=== PATIENT | male | born 1950 ===

== ENCOUNTER 2016-04-28 13:08 | Inpatient (IN) | payer MEDICARE, OTHER ==
[2016-04-28] MEDS: SODIUM CHLORIDE 0.9% 1000ML 1,000 ML IV SCH ×3 (16:15→17:16)
[2016-04-28 16:18] LABS: HEMATOCRIT 30 % (39-53); MEAN CORPUSCULAR HGB CONC 34.7 gm/dl (32.0-36.0); MEAN CORPUSCULAR VOLUME 85 fL (80-100)
[2016-04-28 16:42] LABS: ALBUMIN 2.6 gm/dl (3.4-5.0); ALT 10 IU/L (14-63); BASOPHILS % (MANUAL) 0 % (0-3); CALCIUM 8.7 mg/dl (8.5-10.1); EOSINOPHILS % (MANUAL) 0 % (0-9); GLOM FILT RATE 24 mL/min (>60); LYMPHOCYTES % (MANUAL) 4 % (10-50); NORMAL RBCS PRESENT; THYROID STIMULATING HORMONE 2.751 uIU/ml (0.358-3.740)
[2016-04-28 17:07] LABS: APPEARANCE,URINE Cloudy; BILIRUBIN,URINE NEGATIVE (NEGATIVE); COLOR,URINE Yellow; GLUCOSE, URINE (UA) 3+ (NEGATIVE); KETONES,URINE TRACE (NEGATIVE); LEUKOCYTE ESTERASE ,URINE 1+ (NEGATIVE); NITRATE,URINE NEGATIVE (NEGATIVE); OCCULT BLOOD,URINE 3+ (NEG-TRACE); UROBILINOGEN,URINE 0.2 (0.2-1.0 EU)
[2016-04-28 17:16] LABS: POTASSIUM 4.5 mMol/L (3.5-5.1); SODIUM 134 mMol/L (136-145)
[2016-04-28] MEDS ORDERED: INSULIN HUMAN REGULAR 100 U/ML SOL IV ONE (17:17)
[2016-04-28] MEDS ORDERED: INSULIN HUMAN REGULAR 100 U/ML SOL ONE (17:20)
[2016-04-28 17:36] LABS: WBC,URINE 75-80 (0-5AV/HPF)
[2016-04-28 18:34] LABS: HEMOGLOBIN A1C > 14.0 % (4.8-6.0)
[2016-04-28] MEDS: NOVOLOG FLEXPEN SC SCH ×2 (19:14→21:01)
[2016-04-28] MEDS: INSULIN GLARGINE, RECOMBINAN 100 U/ML SOL SC SCH (21:00)
[2016-04-28] MEDS: CIPROFLOXACIN HCL 500 MG TAB PO SCH (21:04)
[2016-04-29] MEDS: SODIUM CHLORIDE 0.9% 1000ML 1,000 ML IV SCH ×3 (01:41→18:11)
[2016-04-29 07:39] LABS: GLOM FILT RATE 34 mL/min (>60); SODIUM 135 mMol/L (136-145)
[2016-04-29 07:46] LABS: BASOPHILS % (AUTO) 0 % (0-3); EOSINOPHILS % (AUTO) 0 % (0-9); HEMATOCRIT 26 % (39-53); MEAN CORPUSCULAR HGB CONC 34.8 gm/dl (32.0-36.0); MEAN CORPUSCULAR VOLUME 85 fL (80-100); MONOCYTES % (AUTO) 5.5 % (0-12); NEUTROPHILS % (AUTO) 83.2 % (37-80)
[2016-04-29] MEDS: NOVOLOG FLEXPEN SC SCH ×4 (08:20→20:59)
[2016-04-29] MEDS: CIPROFLOXACIN HCL 500 MG TAB PO SCH (08:22)
[2016-04-29] MEDS ORDERED: CEFTRIAXONE 1 GM PDS 1 GM in SODIUM CHLORIDE 0.9% 100 ML 100 ML IV ONE (10:00)
[2016-04-29] MEDS ORDERED: SODIUM CHLORIDE 0.9% 100 ML 100 ML IV ONE (10:56)
[2016-04-29] MEDS ORDERED: CEFTRIAXONE 1 GM PDS ONE (10:56)
[2016-04-29] MEDS ORDERED: ACETAMINOPHEN 325 MG PO PRN (16:26)
[2016-04-29] MEDS ORDERED: MORPHINE SULFATE 10 MG/ML SOL IV PRN (16:26)
[2016-04-29] MEDS ORDERED: LABETALOL HYDROCHLORIDE 5 MG/ML SOL IV ONE (17:44)
[2016-04-29] MEDS: INSULIN GLARGINE, RECOMBINAN 100 U/ML SOL SC SCH (21:00)
[2016-04-30] MEDS: SODIUM CHLORIDE 0.9% 1000ML 1,000 ML IV SCH ×5 (01:50→23:00)
[2016-04-30 07:26] LABS: BASOPHILS % (AUTO) 0 % (0-3); EOSINOPHILS % (AUTO) 0 % (0-9); HEMATOCRIT 26 % (39-53); MEAN CORPUSCULAR HGB CONC 33.8 gm/dl (32.0-36.0); MEAN CORPUSCULAR VOLUME 85 fL (80-100); MONOCYTES % (AUTO) 7.4 % (0-12); NEUTROPHILS % (AUTO) 79.8 % (37-80)
[2016-04-30 07:32] LABS: CALCIUM 7.4 mg/dl (8.5-10.1); POTASSIUM 3.9 mMol/L (3.5-5.1)
[2016-04-30] MEDS ORDERED: INSULIN GLARGINE, RECOMBINAN 100 U/ML SOL SC SCH (08:10)
[2016-04-30] MEDS ORDERED: ACETAMINOPHEN 500 MG 500 MG TAB PO PRN (08:24)
[2016-04-30] MEDS ORDERED: SODIUM CHLORIDE 0.9% 500 ML 500 ML IV ONE (08:24)
[2016-04-30] MEDS ORDERED: APAP/HYDROCODONE 325/5 TAB PO PRN (08:24)
[2016-04-30] MEDS: NOVOLOG FLEXPEN SC SCH ×4 (08:28→20:56)
[2016-04-30] MEDS: AMLODIPINE 5 MG TAB PO SCH (09:32)
[2016-04-30] MEDS: SODIUM CHLORIDE 0.9% FLUSH 10 ML SOL IV SCH ×2 (11:46→20:40)
[2016-04-30] MEDS: CEFDINIR 300 MG CAP PO SCH ×2 (12:16→20:49)
[2016-04-30] MEDS: BESIFLOXACIN HCL OP SCH ×2 (18:06→20:47)
[2016-04-30] MEDS: PREDNISOLONE ACETATE 1% OPHTH 1 DROP SUS OP SCH ×2 (18:07→20:49)
[2016-04-30] MEDS ORDERED: ATORVASTATIN 10 MG TAB PO SCH (21:00)
[2016-05-01] MEDS: SODIUM CHLORIDE 0.9% FLUSH 10 ML SOL IV SCH (04:31)
[2016-05-01] MEDS: NOVOLOG FLEXPEN SC SCH (06:36)
[2016-05-01 07:18] LABS: CALCIUM 7.1 mg/dl (8.5-10.1); POTASSIUM 3.6 mMol/L (3.5-5.1)
[2016-05-01 07:22] LABS: BASOPHILS % (AUTO) 1 % (0-3); EOSINOPHILS % (AUTO) 1 % (0-9); HEMATOCRIT 25 % (39-53); MEAN CORPUSCULAR HGB CONC 35.2 gm/dl (32.0-36.0); MEAN CORPUSCULAR VOLUME 84 fL (80-100); MONOCYTES % (AUTO) 7.2 % (0-12); NEUTROPHILS % (AUTO) 70.3 % (37-80)
[2016-05-01] MEDS: SODIUM CHLORIDE 0.9% 1000ML 1,000 ML IV SCH (08:04)
[2016-05-01] MEDS ORDERED: BROMFENAC SODIUM 3 ML DROPS OP SCH (09:00)
[2016-05-01] MEDS: AMLODIPINE 5 MG TAB PO SCH (09:26)
[2016-05-01] MEDS: BESIFLOXACIN HCL OP SCH (09:27)
[2016-05-01] MEDS: CEFDINIR 300 MG CAP PO SCH (09:27)
[2016-05-01] MEDS: PREDNISOLONE ACETATE 1% OPHTH 1 DROP SUS OP SCH (09:28)
[2016-05-01 10:08] VITALS: BP 139/74; PULSE 84; RESP 20; TEMP 98.2; O2SAT 99
== END 2016-05-01 10:50 | disposition home or self-care (01) | DRG 638 ==
LOC: EDBD → ED 13:08 → UNDOADMIN 17:18 → ACUTE CARE 17:18
PROVIDERS: ADMIT Emergency Medicine; ATTEND Emergency Medicine
DX: E11.65 Type 2 diabetes mellitus with hyperglycemia (principal); N17.9 Acute kidney failure, unspecified; R30.0 Dysuria; N10 Acute pyelonephritis; I16.9 Hypertensive crisis, unspecified
CPT/HCPCS: 36415; 71010; 80048; 80053; 81001; 82009; 82550; 82962; 83036; 84443; 84484; 85007; 85025; 85027; 87077; 87088; 87186; 93005; 96365; 96366; 96374; 99070; 99222; 99231; 99285; J0696; J1815; J1817; J2270